=== PATIENT | female | born 1975 | race Caucasian/White ===

== ENCOUNTER 2021-02-25 22:35 | Emergency (ER) | payer OTHER ==
[2021-02-25 22:50] VITALS: BP 123/68; PULSE 72; TEMP 98; BMI 23.2
[2021-02-26] MEDS ORDERED: DIPHTH,PERTUSS(ACELL),TET 0.5 ML DISP.SYRIN IM ONE (00:37)
== END 2021-02-25 23:27 | disposition home or self-care (01) ==
LOC: FER 22:35
PROC: 3E0234Z Introduction of Serum, Toxoid and Vaccine into Muscle, Percutaneous Approach (ICD-10-PCS; principal; 2021-02-25)
DX: S01.01XA Laceration without foreign body of scalp, initial encounter (principal); S91.312A Laceration without foreign body, left foot, initial encounter; W22.8XXA Striking against or struck by other objects, initial encounter; W25.XXXA Contact with sharp glass, initial encounter
CPT/HCPCS: 90471; 99284-25